=== PATIENT | female | born 1975 | race Hispanic/Latino ===

== ENCOUNTER 2017-08-08 09:52 | Outpatient (CLI) | payer OTHER ==
[2017-08-08 10:58] LABS: Hemoglobin 13.4 g/dL (12.0-16.0); Mean Corpuscular HGB CONC 33.4 g/dL (32.0-36.0); Mean Corpuscular Volume 93.1 fl (81.0-99.0); Mean Platelet Volume 8.4 fL (7.4-10.4); Platelet Count 225 thou/uL (130-400); RBC Distribution Width 12.2 % (11.5-14.5); Red Blood Cell (RBC) Count 4.33 mill/uL (4.20-5.40); White Blood Cell (WBC) Count 8.9 thou/uL (4.8-10.8)
[2017-08-08 11:12] LABS: INR-International Normal Ratio 1.1; PTT 30.9 SEC (22.9-36.1); Prothrombin Time 14.2 SEC (12.0-14.7)
[2017-08-08 11:19] LABS: ALT (SGPT) 18 U/L (8-55); AST (SGOT) 14 U/L (5-34); Albumin 3.7 g/dL (3.5-5.0); Alkaline Phosphatase 79 U/L (40-150); Anion Gap 11 mmol/L (10-20); BUN (Urea Nitrogen) 11 mg/dL (7.0-18.7); Bilirubin, Total 0.7 mg/dL (0.2-1.2); Calc. Creatinine Clearance 0 mL/min (70-130); Calcium 8.7 mg/dL (7.8-10.44); Carbon Dioxide 25 mmol/L (22-29); Chloride 104 mmol/L (98-107); Estimated GFR-MDRD 84; Globulin 2.7 g/dL (2.4-3.5); Glucose 124 mg/dL (70-105); Potassium 3.9 mmol/L (3.5-5.1); Protein, Total 6.4 g/dL (6.0-8.3); Sodium 136 mmol/L (136-145)
--- NOTE | 2017-08-13 08:44 | EKG ---
Test Reason : Blood Pressure : / mmHG Vent. Rate : 064 BPM Atrial Rate : 064 BPM P-R Int : 168 ms QRS Dur : 108 ms QT Int : 426 ms P-R-T Axes : 037 012 060 degrees QTc Int : 439 ms Normal sinus rhythm Low voltage QRS Cannot rule out Anterior infarct , age undetermined Abnormal ECG Confirmed by TULIO ADAMS, KAYLEN ([id number]) on 08/13/2017 8:44:02 AM Referred By: TULIO Confirmed By:KAYLEN ANTUNEZ MD
== END 2017-08-08 09:53 | disposition home or self-care (01) ==
LOC: LABBT 09:52
PROVIDERS: ATTEND Internal Medicine Cardiovascular Disease
DX: Z01.818 Encounter for other preprocedural examination (principal); R07.9 Chest pain, unspecified
CPT/HCPCS: 80053; 85027; 85610; 85730; 93005; 93010

== ENCOUNTER → 2017-08-09 | Day surgery (SDC) | payer OTHER ==
[2017-08-08 10:11] VITALS: BMI 66.4
[~2017-08-09] MED LIST: Diazepam 5 MG TAB ONE; Fentanyl 250 MCG/5 ML VIAL ONE; Heparin 10,000 UNITS/1 ML VIAL ONE; Iopamidol 370 76% 100 ML VIAL ONE; Lidocaine 1% (PF) 30 ML VIAL ONE; Midazolam HCl 2 mg/2 ml Vial ONE; Nitroglycerin 100MG/250ML BOT 250 ML ONE; Sodium Chloride 0.9% 1,000 ML IV SCH; Verapamil 5 MG/2 ML VIAL ONE
== END ==
LOC: CCL 05:37
PROVIDERS: ATTEND Internal Medicine Cardiovascular Disease
PROC: 4A023N7 Measurement of Cardiac Sampling and Pressure, Left Heart, Percutaneous Approach (ICD-10-PCS; principal; 2017-08-09)
PROC: B2111ZZ Fluoroscopy of Multiple Coronary Arteries using Low Osmolar Contrast (ICD-10-PCS; principal; 2017-08-09)
DX: R07.89 Other chest pain (principal); E03.9 Hypothyroidism, unspecified; E78.5 Hyperlipidemia, unspecified; E11.9 Type 2 diabetes mellitus without complications; M19.90 Unspecified osteoarthritis, unspecified site; I10 Essential (primary) hypertension; E66.9 Obesity, unspecified; Z68.44 Body mass index [BMI] 60.0-69.9, adult; Z79.84 Long term (current) use of oral hypoglycemic drugs; Z79.1 Long term (current) use of non-steroidal anti-inflammatories (NSAID); Z79.899 Other long term (current) drug therapy
CPT/HCPCS: 93458; 99152; C1769; J1644; J2001; J2250; J3010

== ENCOUNTER 2017-08-16 10:54 | Outpatient (CLI) | payer OTHER | END 2017-08-16 10:55 | disposition home or self-care (01) | LOC: DTY/OP 10:54 | PROVIDERS: ATTEND Surgery | DX: E11.9 Type 2 diabetes mellitus without complications (principal); G47.30 Sleep apnea, unspecified; I10 Essential (primary) hypertension | CPT/HCPCS: 97802 ==

== ENCOUNTER 2017-09-15 09:43 | Outpatient (CLI) | payer OTHER | END 2017-09-15 09:44 | disposition home or self-care (01) | LOC: DTY/OP 09:43 | PROVIDERS: ATTEND Surgery | DX: Z48.815 Encounter for surgical aftercare following surgery on the digestive system (principal); G47.30 Sleep apnea, unspecified; E11.9 Type 2 diabetes mellitus without complications; I10 Essential (primary) hypertension; Z98.84 Bariatric surgery status | CPT/HCPCS: 97802 ==

== ENCOUNTER 2017-10-17 08:46 | Outpatient (CLI) | payer OTHER | END 2017-10-17 08:47 | disposition home or self-care (01) | LOC: DTY/OP 08:46 | PROVIDERS: ATTEND Surgery | DX: G47.30 Sleep apnea, unspecified (principal); E11.9 Type 2 diabetes mellitus without complications; I10 Essential (primary) hypertension | CPT/HCPCS: 97802 ==

== ENCOUNTER 2017-11-15 09:59 | Outpatient (CLI) | payer OTHER | END 2017-11-15 10:00 | disposition home or self-care (01) | LOC: DTY/OP 09:59 | PROVIDERS: ATTEND Surgery | DX: G47.30 Sleep apnea, unspecified (principal); I10 Essential (primary) hypertension; E11.9 Type 2 diabetes mellitus without complications | CPT/HCPCS: 97802 ==

== ENCOUNTER 2017-11-16 08:18 | Outpatient (CLI) | payer OTHER ==
--- NOTE | 2017-11-20 12:48 | MMO ---
BILATERAL DIGITAL SCREENING MAMMOGRAMS: 11/20/17 HISTORY: 42-year-old female presents with digital screening mammography. COMPARISON: 11/29/16. This patient's mammogram is interpreted with the assistance of computer aided detection. Scattered areas of fibroglandular density are noted. There is an occasional typically benign calcific ation. There is several small stable parenchymal density asymmetries. IMPRESSION: BI-RADS 2: Benign Finding(s) Routine annual screening mammography (for women over age 40). POS: [facility]
== END 2017-11-16 08:19 | disposition home or self-care (01) ==
LOC: SCSMAMMO 08:18
PROVIDERS: ATTEND Obstetrics & Gynecology
DX: Z12.31 Encounter for screening mammogram for malignant neoplasm of breast (principal)
CPT/HCPCS: 77067

== ENCOUNTER 2017-12-14 13:08 | Outpatient (CLI) | payer OTHER | END 2017-12-14 13:09 | disposition home or self-care (01) | LOC: DTY/OP 13:08 | PROVIDERS: ATTEND Surgery | DX: E11.9 Type 2 diabetes mellitus without complications (principal); G47.33 Obstructive sleep apnea (adult) (pediatric); I10 Essential (primary) hypertension | CPT/HCPCS: 97802 ==

== ENCOUNTER 2018-01-10 09:25 | Outpatient (CLI) | payer OTHER | END 2018-01-10 09:26 | disposition home or self-care (01) | LOC: DTY/OP 09:25 | PROVIDERS: ATTEND Surgery | DX: Z00.00 Encounter for general adult medical examination without abnormal findings (principal) | CPT/HCPCS: 97802 ==

== ENCOUNTER 2018-01-31 09:13 | Outpatient (CLI) | payer OTHER ==
[2018-01-31 10:51] LABS: #Basophils 0.1 thou/uL (0.0-0.2); #Eosinphils 0.1 thou/uL (0.0-0.7); #Lymphocytes 2.2 thou/uL (1.20-3.40); #Monocytes 0.8 thou/uL (0.11-0.59); #Neutrophils 7.8 thou/uL (1.40-6.50); %Basophils 0.8 % (0.0-1.0); %Eosinophils 1.3 % (0.0-10.0); %Lymphocytes 19.7 % (21.0-51.0); %Monocytes 7.3 % (0.0-10.0); %Neutrophils 70.9 % (42.0-75.0); Hemoglobin 15.5 g/dL (12.0-16.0); Mean Corpuscular HGB CONC 33.4 g/dL (32.0-36.0); Mean Corpuscular Hemoglobin 30.7 pg (27.0-31.0); Mean Corpuscular Volume 91.7 fL (78.0-98.0); Mean Platelet Volume 9.8 fL (7.4-10.4); Platelet Count 267 thou/uL (130-400); RBC Distribution Width 12.1 % (11.5-14.5); Red Blood Cell (RBC) Count 5.05 mill/uL (4.20-5.40)
[2018-01-31 11:03] LABS: Hemoglobin A1c 5.1 % (4.0-6.0)
--- NOTE | 2018-01-31 11:11 | RAD ---
CHEST PA AND LATERAL: History: 42-year-old female presents for preoperative evaluation. Comparison: 10-17-15 FINDINGS: Heart size is normal. The lungs are clear. No pneumonia, edema, or pleural effusion or other acute pr ocess. IMPRESSION: No acute intrathoracic disease. POS: [facility]
[2018-01-31 11:15] LABS: ALT (SGPT) 11 U/L (8-55); AST (SGOT) 12 U/L (5-34); Alkaline Phosphatase 53 U/L (40-150); Anion Gap 11 mmol/L (10-20); BUN (Urea Nitrogen) 8 mg/dL (7.0-18.7); Bilirubin, Direct 0.4 mg/dL (0.1-0.3); Bilirubin, Total 1.1 mg/dL (0.2-1.2); Calc. Creatinine Clearance 0 mL/min (70-130); Calcium 9.5 mg/dL (7.8-10.44); Carbon Dioxide 25 mmol/L (22-29); Chloride 103 mmol/L (98-107); Estimated GFR-MDRD 87; Globulin 3.2 g/dL (2.4-3.5); Glucose 104 mg/dL (70-105); Potassium 3.6 mmol/L (3.5-5.1); Protein, Total 7.2 g/dL (6.0-8.3); Sodium 135 mmol/L (136-145)
== END 2018-01-31 09:14 | disposition home or self-care (01) ==
LOC: LABBT 09:13
PROVIDERS: ATTEND Surgery
DX: Z01.818 Encounter for other preprocedural examination (principal); E66.01 Morbid (severe) obesity due to excess calories
CPT/HCPCS: 71046; 80053; 80076; 83036; 85025; 93005; 93010

== ENCOUNTER 2018-01-31 09:30 | Inpatient (IN) | payer OTHER ==
[2018-01-31 09:52] VITALS: BMI 53.0
[2018-02-08] MEDS ORDERED: CEFAZOLIN/Water 2 GM/20 ML SYRINGE ONE (10:50)
[2018-02-08] MEDS ORDERED: Heparin 5,000 UNITS/ML VIAL ONE (10:50)
[2018-02-08] MEDS ORDERED: Ondansetron HCl/PF 4 MG/2 ML Vial ONE (11:21)
[2018-02-08] MEDS ORDERED: Lidocaine 1% PF 5 ML VIAL ONE (11:21)
[2018-02-08] MEDS ORDERED: PROPOFOL 200 MG/20 ML VIAL ONE (11:21)
[2018-02-08] MEDS ORDERED: Dexamethasone 20 MG/5 ML VIAL ONE (11:21)
[2018-02-08] MEDS ORDERED: Glycopyrrolate 0.2 MG/ML 5 ML SYRINGE ONE (11:21)
[2018-02-08] MEDS ORDERED: ePHEDrine/0.9% NaCl/PF SYRINGE 50 mg/10 ml ONE (11:21)
[2018-02-08] MEDS ORDERED: Ketorolac Tromethamine 30 MG/ML VIAL ONE (11:21)
[2018-02-08] MEDS ORDERED: Bupivacaine/Epinephrine 0.25% 30 ML VIAL ONE (13:33)
[2018-02-08] MEDS ORDERED: Fentanyl 100 MCG/2 ML VIAL ONE ×2 (13:35→15:43)
[2018-02-08] MEDS ORDERED: Midazolam HCl 2 mg/2 ml Vial ONE (13:35)
[2018-02-08] MEDS ORDERED: HYDROmorphone 0.5 MG/0.5 ML SYRINGE ONE (13:36)
[2018-02-08] MEDS ORDERED: Promethazine HCl 25 MG/ML VIAL SLOW IVP PRN (15:13)
[2018-02-08] MEDS ORDERED: Promethazine HCl 25 MG/ML VIAL IM PRN ×3 (15:13→17:31)
[2018-02-08] MEDS ORDERED: PACU-Morphine 4MG/ML VIAL SLOW IVP PRN (15:13)
[2018-02-08] MEDS ORDERED: HYDROmorphone 2 MG/ML VIAL SLOW IVP PRN (15:13)
[2018-02-08] MEDS ORDERED: Ondansetron HCl/PF 4 MG/2 ML Vial IVP PRN ×3 (15:13→17:31)
[2018-02-08] MEDS ORDERED: diphenhydrAMINE 50 MG/ML VIAL IM PRN (15:37)
[2018-02-08] MEDS ORDERED: diphenhydrAMINE 25 MG CAP PO PRN (15:37)
[2018-02-08] MEDS ORDERED: fentaNYL Citrate/PF 2,000 MCG in Sodium Chloride 0.9% 60 ML IV PRN (15:37)
[2018-02-08] MEDS ORDERED: diphenhydrAMINE 50 MG/ML VIAL IVP PRN ×2 (15:37→17:31)
[2018-02-08] MEDS ORDERED: Naloxone HCl 0.4 mg/ml Vial IV PRN (15:37)
[2018-02-08] MEDS ORDERED: Zolpidem Tartrate 5 MG TAB PO PRN (15:37)
[2018-02-08] MEDS ORDERED: Communication Order-Pharmacy FS SCH (15:45)
[2018-02-08] MEDS ORDERED: HumaLOG 300 UNITS/3 ML VIAL SC PRN (17:31)
[2018-02-08] MEDS ORDERED: Dextrose 50% Abboject 50 ML SYRINGE SLOW IVP PRN (17:31)
[2018-02-08] MEDS ORDERED: hydrALAZINE 20 MG/ML VIAL SLOW IVP PRN (17:31)
[2018-02-08] MEDS ORDERED: Dextrose 5% in Water 1,000 ML IV PRN (17:31)
[2018-02-08] MEDS ORDERED: Hydrocodone-Acetamin 15 ML UDCUP PO PRN (17:31)
--- NOTE | 2018-02-08 17:59 | OP ---
DATE OF PROCEDURE: 02/08/2018 PREOPERATIVE DIAGNOSES: 1. Morbid obesity with a body mass index of 53. 2. Hypertension. 3. Diabetes mellitus type 2. POSTOPERATIVE DIAGNOSES: 1. Morbid obesity with a body mass index of 53. 2. Hypertension. 3. Diabetes mellitus type 2. 4. Paraesophageal hiatal hernia. PROCEDURES: 1. Laparoscopic sleeve gastrectomy with Mico staple and reinforcements, 38 [place] bougie. 2. Laparoscopic hiatal hernia repair without fundoplication or mesh. 3. Esophagogastroduodenoscopy. SURGEON: Dr. Mitchell. ANESTHESIA: General. ESTIMATED BLOOD LOSS: 50 mL. COMPLICATIONS: None. FINDINGS: Hiatal hernia, normal postoperative EGD. PROCEDURE IN DETAIL: The patient was taken to the operating room and placed supine on the table. Af ter general anesthetic was obtained, the arms and legs were double strapped to bariatric table. OG t ube was used to decompress the stomach. The abdomen was prepped and draped in a sterile fashion. Le ft subcostal 5-mm Optiview trocar was placed in the usual fashion. High flow pneumoperitoneum was ob tained. Left and right abdominal 12-mm ports as well as a right subcostal 5 mm port were placed unde r direct visualization. A 5 mm incision made at the xiphoid and Kevin used to raise the liver of f the GE junction. Short gastrics were taken down from mid body of stomach to left urmila. Left urmila, posterior fundus, angle of His completely dissected as are all posterior adhesions. Short gastric t aken down to a distance of 5 cm proximal to the pylorus. A 38-[place] bougie was brought in and its t ip left in the antrum of the stomach. A hiatal hernia was found. Circumferential dissection of the esophagus was performed. The right and left urmila are dissected out posteriorly and anteriorly. The gastrohepatic ligament is opened to facilitate this. Multiple loads of an [place] stapling device wi th Mico staple line reinforcements used to form the sleeve. The first is fired at a distance of 6 cm proximal to the pylorus angled up towards the incisura. Multiple loads then fired up along the boug ie. Stomach was completely transected at the angle of His. The stomach was removed from the left ab dominal incision. This fascial defect was closed using GraNee needle 0 Vicryl tie. All port sites i nfiltrated using local anesthetic. Ethibond suture and the tie knot system used to close the crura p osteriorly. Care was taken to avoid making it too tight. The bougie was removed. EGD scope was pas sed into the esophagus to the level of the duodenum without obstruction or stricture, no air leakage or bleeding. It is used to decompress the stomach, it was pulled and removed. Molly retractor w as removed under direct visualization without bleeding. All port sites are removed under direct visu alization without bleeding. Pneumoperitoneum was let down. Vicryl used to close the fascial defect from left abdominal incisions. All incisions were irrigated and closed using 4-0 Monocryl and Dermab ond. The patient was en route to recovery in stable condition. All instrument counts, needle counts , and lap counts are correct.
[2018-02-08] MEDS: Acetaminophen 1,000 MG in Premix Bag 1 BAG IVPB SCH ×2 (18:50→23:02)
[2018-02-08] MEDS: 1/2 NS w/KCL 20 mEq 1,000 ML IV SCH (18:50)
[2018-02-08] MEDS: Enoxaparin Sodium 40 MG/0.4 ML SYRINGE SC SCH (20:57)
[2018-02-09] MEDS: 1/2 NS w/KCL 20 mEq 1,000 ML IV SCH ×3 (03:15→20:27)
[2018-02-09] MEDS: Acetaminophen 1,000 MG in Premix Bag 1 BAG IVPB SCH ×5 (05:17→23:53)
[2018-02-09 05:31] LABS: Anion Gap 10 mmol/L (10-20); BUN (Urea Nitrogen) 11 mg/dL (7.0-18.7); Calc. Creatinine Clearance 204 mL/min (70-130); Calcium 9.1 mg/dL (7.8-10.44); Carbon Dioxide 25 mmol/L (22-29); Chloride 101 mmol/L (98-107); Estimated GFR-MDRD 80; Glucose 151 mg/dL (70-105); Potassium 4.1 mmol/L (3.5-5.1); Sodium 132 mmol/L (136-145)
[2018-02-09 05:38] LABS: Band 7 % (5-11); Hemoglobin 15.1 g/dL (12.0-16.0); Lymphocytes 2 % (21-51); MDiff Complete? YES; Mean Corpuscular HGB CONC 33.3 g/dL (32.0-36.0); Mean Corpuscular Hemoglobin 30.5 pg (27.0-31.0); Mean Corpuscular Volume 91.5 fL (78.0-98.0); Mean Platelet Volume 9.8 fL (7.4-10.4); Monocytes 4 % (0-10); Neutrophil 87 % (42-75); PLT Morphology Comment Appears Adequate; Platelet Count 238 thou/uL (130-400); RBC Distribution Width 12.2 % (11.5-14.5); Red Blood Cell (RBC) Count 4.94 mill/uL (4.20-5.40); White Blood Cell (WBC) Count 21.8 thou/uL (4.8-10.8)
[2018-02-09] MEDS: Pantoprazole 40 MG VIAL IVP SCH (09:31)
--- NOTE | 2018-02-09 12:14 | PDOC.GSPN ---
Surgery Progress Note: Subj - Subjective Narrative: c/o liquids not going down very well. No significant nausea Surgery Progress Note: Obj - Vital signs Vital signs: Vital Signs - Most Recent Temp Pulse Resp BP Pulse Ox 98.2 F 82 13 149/97 H 97 02/09/18 11:52 02/09/18 11:52 02/09/18 11:52 02/09/18 11:52 02/09/18 11:52 - Physical Exam General: no distress Respiratory: clear to auscultation Abdomen: soft, non tender, nondistended Wound: healing well Surgery Progress Note: Results - Labs Result Diagrams: 02/09/18 05:08 02/09/18 05:08 Lab results: Laboratory Results - last 24 hr 02/08/18 02/09/18 02/09/18 23:48 05:08 05:08 WBC 21.8 H RBC 4.94 Hgb 15.1 Hct 45.2 MCV 91.5 MCH 30.5 MCHC 33.3 RDW 12.2 Plt Count 238 MPV 9.8 Neutrophils % (Manual) 87 H Band Neuts % (Manual) 7 Lymphocytes % (Manual) 2 L Monocytes % (Manual) 4 Plt Morphology Comment Appears Adequate Sodium 132 L Potassium 4.1 Chloride 101 Carbon Dioxide 25 Anion Gap 10 BUN 11 Creatinine 0.78 Estimated GFR (MDRD) 80 Glucose 151 H POC Glucose 167 H Calcium 9.1 02/09/18 02/09/18 06:01 10:41 WBC RBC Hgb Hct MCV MCH MCHC RDW Plt Count MPV Neutrophils % (Manual) Band Neuts % (Manual) Lymphocytes % (Manual) Monocytes % (Manual) Plt Morphology Comment Sodium Potassium Chloride Carbon Dioxide Anion Gap BUN Creatinine Estimated GFR (MDRD) Glucose POC Glucose 133 H 122 H Calcium Surgery Progress Note: A/P - Problem (1) Morbid obesity Current Visit: Yes Code(s): E66.01 - MORBID (SEVERE) OBESITY DUE TO EXCESS CALORIES Status: Acute - Plan Plan: Stay today -suspect she will be able to tolerate liquids better tomorrow. -swallow eval tomorrow if not improved
[2018-02-09] MEDS: Amlodipine 10 MG TAB PO SCH (18:13)
[2018-02-09] MEDS: Ketorolac Tromethamine 30 MG/ML VIAL IVP SCH ×2 (18:14→21:25)
[2018-02-09] MEDS: Enoxaparin Sodium 40 MG/0.4 ML SYRINGE SC SCH (21:25)
[2018-02-10] MEDS: 1/2 NS w/KCL 20 mEq 1,000 ML IV SCH ×3 (04:56→20:54)
[2018-02-10] MEDS: Acetaminophen 1,000 MG in Premix Bag 1 BAG IVPB SCH (05:17)
[2018-02-10] MEDS: Ketorolac Tromethamine 30 MG/ML VIAL IVP SCH (05:18)
[2018-02-10] MEDS: Pantoprazole 40 MG VIAL IVP SCH (09:39)
[2018-02-10] MEDS: Amlodipine 10 MG TAB PO SCH (09:39)
--- NOTE | 2018-02-10 09:39 | PRG ---
DATE OF SERVICE: 02/10/2018 SUBJECTIVE: The patient says she is doing better than yesterday, but she is still having a little tr ouble with fluids. She is working on it and she may be able to keep enough down to go home later tod ay. Her pain is well controlled. She is not having any reflux. PHYSICAL EXAMINATION: VITAL SIGNS: Her temperature is 98.2, pulse 66, blood pressure 117/73. GENERAL: She looks good. She is awake and alert. CHEST: Lungs are clear. ABDOMEN: Soft, nondistended. The incisions are healing well. ASSESSMENT: Soft tissue swelling after sleeve gastrectomy. PLAN: When she meets criteria for discharge, we will allow her to go home.
[2018-02-10] MEDS: Fentanyl 100 MCG/2 ML VIAL SLOW IVP PRN ×2 (16:23→19:55)
[2018-02-10] MEDS: Enoxaparin Sodium 40 MG/0.4 ML SYRINGE SC SCH (20:05)
[2018-02-10] MEDS: Acetaminophen 1,000 MG in Premix Bag 1 BAG IVPB PRN (21:00)
[2018-02-11] MEDS: Acetaminophen 1,000 MG in Premix Bag 1 BAG IVPB PRN ×2 (02:55→11:30)
[2018-02-11] MEDS: 1/2 NS w/KCL 20 mEq 1,000 ML IV SCH ×3 (05:19→15:57)
[2018-02-11] MEDS: Amlodipine 10 MG TAB PO SCH (08:40)
[2018-02-11] MEDS: Pantoprazole 40 MG VIAL IVP SCH (09:01)
--- NOTE | 2018-02-11 10:12 | PRG ---
DATE OF SERVICE: 02/11/2018 SUBJECTIVE: The patient states that she is still having difficulty taking oral fluids. She got abou t 2.5 ounces yesterday, has some minimal nausea, it is mainly just trying to get the fluid down. She is voiding well. Pain is okay. PHYSICAL EXAMINATION: VITAL SIGNS: Her temperature is 98.2, pulse 71, blood pressure 141/87. GENERAL APPEARANCE: She looks good. The incisions look. ASSESSMENT: Stable, but with postop swelling. PLAN: Continue IV fluids, continue to try and take p.o. when she is able to drink eight ounces of fl uid in 2 hours and we will let her go home.
[2018-02-11] MEDS: Enoxaparin Sodium 40 MG/0.4 ML SYRINGE SC SCH (20:23)
[2018-02-12] MEDS: 1/2 NS w/KCL 20 mEq 1,000 ML IV SCH ×3 (06:04→21:05)
[2018-02-12] MEDS: Amlodipine 10 MG TAB PO SCH (08:00)
[2018-02-12] MEDS: Pantoprazole 40 MG VIAL IVP SCH (08:01)
--- NOTE | 2018-02-12 10:08 | PDOC.GSPN ---
Surgery Progress Note: Subj - Subjective Narrative: c/o pain in low chest, upper midline abdomen with swallowing. No nausea or vomitting. Ambulating well Surgery Progress Note: Obj - Vital signs Vital signs: Vital Signs - Most Recent Temp Pulse Resp BP Pulse Ox 98.3 F 81 14 131/92 H 98 02/12/18 07:33 02/12/18 07:33 02/12/18 07:33 02/12/18 07:33 02/12/18 07:33 - Physical Exam General: no distress Cardiovascular: regular rate and rhythm Respiratory: clear to auscultation Abdomen: soft, non tender Wound: healing well (She has bruise at xiphoid) Surgery Progress Note: Results - Labs Result Diagrams: 02/09/18 05:08 02/09/18 05:08 Lab results: Laboratory Results - last 24 hr 02/11/18 02/12/18 23:42 06:02 POC Glucose 93 98 Surgery Progress Note: A/P - Problem (1) Morbid obesity Current Visit: Yes Code(s): E66.01 - MORBID (SEVERE) OBESITY DUE TO EXCESS CALORIES Status: Acute - Plan Plan: Persistent pain in low chest/upper abd with swallowing. She has bruise in the area, I suspect her pain is from the bruising from liver retractor. Swallow study this am to r/o hold up at hiatal hernia repair.
[2018-02-12] MEDS ORDERED: GASTROGRAFIN 30 ML BOT ONE (13:38)
--- NOTE | 2018-02-12 14:00 | RAD ---
ESOPHAGRAM: HISTORY: Nausea and vomiting after bariatric surgery. FINDINGS: Postoperative changes of the stomach consistent with recent gastric sleeve procedure. Contrast remai loree within the upper half of the stomach and the distal esophagus. No evidence of leak. Out to 28 minutes, no contrast passed into the distal stomach. IMPRESSION: High-grade/complete obstruction at the level of the gastric body. Findings were called to Erika, the patient's nurse, at 1116 hours. CODE CR POS: [facility]
--- NOTE | 2018-02-12 14:54 | PDOC.EVN ---
Event Note - Event Note Event Note: Swallow shows hold up of contrast in mid stomach. No hold up at GE junction or esophageal hiatus. No leak. Plan is observation. If not improved tomorrow will have GI do EGD+/- balloon dilation
[2018-02-12] MEDS: Fentanyl 100 MCG/2 ML VIAL SLOW IVP PRN (16:00)
[2018-02-12] MEDS: Enoxaparin Sodium 40 MG/0.4 ML SYRINGE SC SCH (21:04)
[2018-02-13] MEDS: Fentanyl 100 MCG/2 ML VIAL SLOW IVP PRN (00:02)
[2018-02-13] MEDS: 1/2 NS w/KCL 20 mEq 1,000 ML IV SCH (00:05)
[2018-02-13] MEDS: Amlodipine 10 MG TAB PO SCH (09:51)
[2018-02-13] MEDS: Pantoprazole 40 MG VIAL IVP SCH (09:52)
[2018-02-13 17:03] VITALS: BP 134/82; TEMP 98
== END 2018-02-13 16:35 | disposition home or self-care (01) | DRG 621 ==
LOC: SURG A 02-08 09:46
PROVIDERS: ADMIT Surgery; ATTEND Surgery
PROC: 0DB64Z3 Excision of Stomach, Percutaneous Endoscopic Approach, Vertical (ICD-10-PCS; principal; 2018-02-08)
PROC: 0BQT4ZZ Repair Diaphragm, Percutaneous Endoscopic Approach (ICD-10-PCS; 2018-02-08)
DX: E66.01 Morbid (severe) obesity due to excess calories (principal); Z68.43 Body mass index [BMI] 50.0-59.9, adult; I10 Essential (primary) hypertension; E11.9 Type 2 diabetes mellitus without complications; K44.9 Diaphragmatic hernia without obstruction or gangrene; Z79.82 Long term (current) use of aspirin; Z79.84 Long term (current) use of oral hypoglycemic drugs; Z83.3 Family history of diabetes mellitus; Z82.49 Family history of ischemic heart disease and other diseases of the circulatory system; Z80.0 Family history of malignant neoplasm of digestive organs; Z82.3 Family history of stroke
CPT/HCPCS: 36415; 36416; 74241; 80048; 85025; 88307; 88312; 90471; 90686; 94760; C9113; G0008; J0131; J1100; J1170; J1644; J1650; J1885; J2001; J2250; J2405; J2704; J3010; J7050

== ENCOUNTER 2018-02-20 16:26 | Day surgery (SDC) | payer OTHER ==
[2018-02-20] MEDS ORDERED: Multivit, Adult Inj 10 ML VIAL ONE (16:47)
[2018-02-20] MEDS ORDERED: Thiamine HCl 200 MG/2 ML VIAL ONE (16:47)
== END 2018-02-20 18:10 | disposition home or self-care (01) ==
LOC: SCSER/OP 16:26
PROVIDERS: ATTEND Emergency Medicine
DX: Z29.8 Encounter for other specified prophylactic measures (principal); Z79.899 Other long term (current) drug therapy
CPT/HCPCS: J3411

== ENCOUNTER 2018-12-13 11:27 | Outpatient (CLI) | payer OTHER ==
--- NOTE | 2018-12-13 14:42 | MMO ---
Bilateral MAMMO Bilat Screen [facility]. CLINICAL HISTORY: Patient is 43 years old and is seen for screening. The patient has no family history of breast cancer. The patient has no personal history of cancer. VIEWS: The views performed were: bilateral craniocaudal with tomosynthesis and bilateral mediolateral oblique with tomosynthesis. FILMS COMPARED: The present examination has been compared to prior imaging studies performed at [facility] on 11/29/2016, and at [facility] on 05/19/2015. This study has been interpreted with the assistance of computer-aided detection. MAMMOGRAM FINDINGS: There are scattered fibroglandular densities. There are no suspicious masses, suspicious calcifications, or new areas of architectural distortion. IMPRESSION: THERE IS NO MAMMOGRAPHIC EVIDENCE OF MALIGNANCY. A ROUTINE FOLLOW-UP MAMMOGRAM IN 1 YEAR IS RECOMMENDED. ACR BI-RADS Category 1 - Negative MAMMOGRAPHY NOTE: 1. A negative mammogram report should not delay a biopsy if a dominant of clinically suspicious mass is present. 2. Approximately 10% to 15% of breast cancers are not detected by mammography. 3. Adenosis and dense breasts may obscure an underlying neoplasm. Reported by: MEENA LUZ MD Electonically Signed: [id number]
--- NOTE | 2018-12-13 16:42 | BD ---
Exam: DEXA Bone Density 12/13/18 HISTORY: Screening for osteoporosis in a menopausal female. Lumbar Spine: BMD (g/cm2) T-SCORE L1 1.256 +2.4 L2 1.218 +1.7 L3 1.227 +1.3 L4 1.231 +1.5 L1-L4 1.233 +1.7 Within normal limits with no increased risk for fracture. Left Femoral Neck: 0.970 +1.1 Total Femur: 1.167 +1.8 Within normal limits with no increased risk for fracture. FRAX score not given because all T-Scores are at or above -1.0. POS: [facility]
== END 2018-12-13 11:28 | disposition home or self-care (01) ==
LOC: BICMAMMO 11:27
PROVIDERS: ATTEND Obstetrics & Gynecology
DX: Z12.31 Encounter for screening mammogram for malignant neoplasm of breast (principal); Z13.820 Encounter for screening for osteoporosis
CPT/HCPCS: 77063; 77067; 77080

== ENCOUNTER 2020-01-28 12:37 | Outpatient (CLI) | payer BC ==
--- NOTE | 2020-01-28 14:05 | MMO ---
Bilateral MAMMO Bilat Screen [facility]. CLINICAL HISTORY: Patient is 44 years old and is seen for screening. The patient has no family history of breast cancer. The patient has no personal history of cancer. VIEWS: The views performed were: bilateral craniocaudal with tomosynthesis and bilateral mediolateral oblique with tomosynthesis. FILMS COMPARED: The present examination has been compared to prior imaging studies performed at [facility] on 11/29/2016 and 12/13/2018, and at [facility] on 05/19/2015. This study has been interpreted with the assistance of computer-aided detection. MAMMOGRAM FINDINGS: There are scattered fibroglandular densities. There are no suspicious masses, suspicious calcifications, or new areas of architectural distortion. IMPRESSION: THERE IS NO MAMMOGRAPHIC EVIDENCE OF MALIGNANCY. A ROUTINE FOLLOW-UP MAMMOGRAM IN 1 YEAR IS RECOMMENDED. THE RESULTS OF THIS EXAM WERE SENT TO THE PATIENT. ACR BI-RADS Category 1 - Negative MAMMOGRAPHY NOTE: 1. A negative mammogram report should not delay a biopsy if a dominant of clinically suspicious mass is present. 2. Approximately 10% to 15% of breast cancers are not detected by mammography. 3. Adenosis and dense breasts may obscure an underlying neoplasm. Reported by: DELFINO CORTEZ MD Electonically Signed: [id number]
== END 2020-01-28 12:38 | disposition home or self-care (01) ==
LOC: BICMAMMO 12:37
PROVIDERS: ATTEND Physician Assistant
DX: Z12.31 Encounter for screening mammogram for malignant neoplasm of breast (principal)
CPT/HCPCS: 77063; 77067

== ENCOUNTER 2020-01-28 14:11 | Emergency (ER) | payer BC ==
[2020-01-28 15:07] LABS: #Basophils 0.1 thou/uL (0.0-0.2); #Eosinphils 0.1 thou/uL (0.0-0.7); #Lymphocytes 1.3 thou/uL (1.20-3.40); #Monocytes 0.7 thou/uL (0.11-0.59); #Neutrophils 5.9 thou/uL (1.40-6.50); %Basophils 1.2 % (0.0-1.0); %Eosinophils 1.3 % (0.0-10.0); %Lymphocytes 15.8 % (21.0-51.0); %Monocytes 8.1 % (0.0-10.0); %Neutrophils 73.7 % (42.0-75.0); Mean Corpuscular HGB CONC 33.7 g/dL (32.0-36.0); Mean Corpuscular Hemoglobin 32.6 pg (27.0-31.0); Mean Corpuscular Volume 96.7 fL (78.0-98.0); Mean Platelet Volume 9.1 fL (7.4-10.4); Platelet Count 241 thou/uL (130-400); RBC Distribution Width 11.7 % (11.5-14.5); Red Blood Cell (RBC) Count 4.31 mill/uL (4.20-5.40)
[2020-01-28 15:13] LABS: INR-International Normal Ratio 1.1; Prothrombin Time 14.9 sec (12.0-14.7)
[2020-01-28 15:14] LABS: PTT 31.3 sec (22.9-36.1)
--- NOTE | 2020-01-28 15:20 | ULT ---
EXAM: Right lower extremity venous Doppler US HISTORY: Right lower extremity edema and pain FINDINGS: Grayscale, color-flow, Doppler evaluation, spectral analysis of the right lower extremity venous stru ctures is performed with 2-D imaging. The right common femoral, superficial femoral, popliteal, posterior tibial, proximal greater saphenous and profunda femoral veins are imaged. There is normal luminal compressibility, flow, and augmentation the visualized deep venous structures of the right lower extremity. IMPRESSION: No evidence of a deep vein thrombosis in the right lower extremity.
[2020-01-28 15:28] LABS: ALT (SGPT) 9 U/L (8-55); AST (SGOT) 12 U/L (5-34); Albumin 3.5 g/dL (3.5-5.0); Alkaline Phosphatase 68 U/L (40-110); Anion Gap 9 mmol/L (10-20); BUN (Urea Nitrogen) 21 mg/dL (7.0-18.7); Bilirubin, Total 0.9 mg/dL (0.2-1.2); Calc. Creatinine Clearance 0 mL/min (70-130); Calcium 8.4 mg/dL (7.8-10.44); Carbon Dioxide 27 mmol/L (22-29); Chloride 105 mmol/L (98-107); Estimated GFR-MDRD 84; Globulin 2.7 g/dL (2.4-3.5); Glucose 89 mg/dL (70-105); Potassium 3.6 mmol/L (3.5-5.1); Protein, Total 6.2 g/dL (6.0-8.3); Sodium 137 mmol/L (136-145)
== END 2020-01-28 15:45 | disposition home or self-care (01) ==
LOC: ERS 14:11
DX: S80.11XA Contusion of right lower leg, initial encounter (principal); R60.0 Localized edema; E11.9 Type 2 diabetes mellitus without complications; E03.9 Hypothyroidism, unspecified; E78.2 Mixed hyperlipidemia; M19.90 Unspecified osteoarthritis, unspecified site; J45.909 Unspecified asthma, uncomplicated; G47.30 Sleep apnea, unspecified; Z79.899 Other long term (current) drug therapy
CPT/HCPCS: 36415; 80053; 85025; 85610; 85730

== ENCOUNTER 2021-11-11 14:11 | Outpatient (CLI) | payer MEDICAID | END 2021-11-11 14:12 | disposition home or self-care (01) | LOC: BICRAD 14:11 | PROVIDERS: ATTEND Nurse Practitioner Family | DX: S32.049S Unspecified fracture of fourth lumbar vertebra, sequela (principal); M79.671 Pain in right foot; M47.816 Spondylosis without myelopathy or radiculopathy, lumbar region; M41.9 Scoliosis, unspecified | CPT/HCPCS: 72100 ==

== ENCOUNTER 2021-12-08 08:08 | Outpatient (CLI) | payer MEDICAID | END 2021-12-08 08:09 | disposition home or self-care (01) | LOC: BICMAMMO 08:08 | PROVIDERS: ATTEND Physician Assistant | DX: Z12.31 Encounter for screening mammogram for malignant neoplasm of breast (principal) | CPT/HCPCS: 77067 ==

== ENCOUNTER 2022-01-13 09:16 | Outpatient (CLI) | payer OTHER | END 2022-01-13 09:17 | disposition home or self-care (01) | LOC: BICMAMMO 09:16 | PROVIDERS: ATTEND Physician Assistant | DX: Z13.820 Encounter for screening for osteoporosis (principal); Z78.0 Asymptomatic menopausal state | CPT/HCPCS: 77080 ==

== ENCOUNTER 2022-02-18 18:30 | Emergency (ER) | payer OTHER ==
[2022-02-18] MEDS ORDERED: Ketorolac Tromethamine 30 MG/ML VIAL ONE (19:33)
== END 2022-02-18 21:37 | disposition home or self-care (01) ==
LOC: ERS 18:30
DX: M54.41 Lumbago with sciatica, right side (principal); E78.5 Hyperlipidemia, unspecified; I10 Essential (primary) hypertension; E03.9 Hypothyroidism, unspecified; K21.9 Gastro-esophageal reflux disease without esophagitis; E11.9 Type 2 diabetes mellitus without complications; Z87.891 Personal history of nicotine dependence; Z79.899 Other long term (current) drug therapy
CPT/HCPCS: 72128; 72131; 96372; J1885

== ENCOUNTER 2022-04-07 14:59 | Outpatient (CLI) | payer OTHER | END 2022-04-07 15:00 | disposition home or self-care (01) | LOC: TBSIIMAG 14:59 | PROVIDERS: ATTEND Psychiatry & Neurology Clinical Neurophysiology | DX: M47.26 Other spondylosis with radiculopathy, lumbar region (principal); M48.061 Spinal stenosis, lumbar region without neurogenic claudication | CPT/HCPCS: 72148 ==

== ENCOUNTER 2022-06-17 14:00 | Outpatient (CLI) | payer MEDICAID, OTHER | END 2022-06-17 14:01 | disposition home or self-care (01) | LOC: BICMAMMO 14:00 | PROVIDERS: ATTEND Physician Assistant | DX: R92.8 Other abnormal and inconclusive findings on diagnostic imaging of breast (principal) | CPT/HCPCS: G0279 ==

== ENCOUNTER 2022-09-01 04:53 | Observation (INO) | payer OTHER ==
[2022-09-01] MEDS ORDERED: Ondansetron PF 4 MG/2 ML Vial IVP PRN (06:13)
[2022-09-01 06:35] VITALS: BMI 55.6
[2022-09-01 06:46] LABS: #Eosinphils 0.1 thou/uL (0.0-0.7); #Monocytes 0.6 thou/uL (0.11-0.59); #Neutrophils 10.3 thou/uL (1.40-6.50); %Basophils 0.3 % (0.0-1.0); %Eosinophils 0.4 % (0.0-10.0); %Lymphocytes 5.5 % (21.0-51.0); %Monocytes 5.4 % (0.0-10.0); %Neutrophils 87.9 % (42.0-75.0); Hemoglobin 12.3 g/dL (12.0-16.0); Mean Corpuscular HGB CONC 32.6 g/dL (32.0-36.0); Mean Corpuscular Hemoglobin 30.3 pg (27.0-31.0); Mean Corpuscular Volume 92.9 fl (78.0-98.0); Mean Platelet Volume 10.9 fL (7.4-10.4); Platelet Count 163 10x3/uL (130-400); RBC Distribution Width 12.8 % (11.5-14.5); Red Blood Cell (RBC) Count 4.06 mill/uL (4.20-5.40); White Blood Cell (WBC) Count 11.7 10x3/uL (4.8-10.8)
[2022-09-01 07:08] LABS: Anion Gap 10 mmol/L (10-20); BUN (Urea Nitrogen) 9 mg/dL (7.0-18.7); Calc. Creatinine Clearance 226 mL/min (70-130); Carbon Dioxide 23 mmol/L (22-29); Chloride 111 mmol/L (98-107); Estimated GFR 106; Glucose 115 mg/dL (70-105); Potassium 3.7 mmol/L (3.5-5.1); Sodium 140 mmol/L (136-145)
[2022-09-01] MEDS ORDERED: Ondansetron ODT 4 MG TAB PO PRN (07:57)
[2022-09-01] MEDS ORDERED: Ergocalciferol 1.25 MG(50,000 UNITS) CAP PO SCH ×2 (08:00→09:00)
[2022-09-01] MEDS ORDERED: Lisinopril 20 MG TAB PO SCH (09:00)
[2022-09-01] MEDS ORDERED: Lisinopril 10 MG TAB PO SCH (09:00)
[2022-09-01] MEDS: Sodium Chloride 0.9% 1,000 ML IV SCH ×2 (09:44→20:19)
[2022-09-01] MEDS: Acetaminophen 325 MG TAB PO PRN ×2 (09:45→15:31)
[2022-09-01] MEDS: Gabapentin 300 MG CAP PO SCH ×3 (09:45→20:21)
[2022-09-01] MEDS: Lisinopril 20 MG TAB PO SCH (09:47)
[2022-09-01] MEDS: Levothyroxine Sodium 50 MCG TAB PO SCH (09:47)
[2022-09-01] MEDS ORDERED: Dextrose 5% in Water 1,000 ML IV PRN (10:01)
[2022-09-01] MEDS ORDERED: HumaLOG 300 UNITS/3 ML VIAL SC PRN ×2 (10:01)
[2022-09-01] MEDS ORDERED: Dextrose 50% Abboject 50 ML SYRINGE SLOW IVP PRN (10:01)
[2022-09-01] MEDS: VANCOMYCIN 2 GRAM/500 ML BAG 2 GM in Premix Bag 1 BAG IVPB SCH ×2 (15:31→21:57)
[2022-09-01] MEDS: Cefepime 1 GM in Sodium Chloride 0.9% 100 ML IVPB SCH (18:07)
[2022-09-02] MEDS: Cefepime 1 GM in Sodium Chloride 0.9% 100 ML IVPB SCH (03:21)
[2022-09-02 05:22] LABS: #Eosinphils 0.1 thou/uL (0.0-0.7); #Monocytes 0.4 thou/uL (0.11-0.59); #Neutrophils 5.5 thou/uL (1.40-6.50); %Basophils 0.6 % (0.0-1.0); %Lymphocytes 11.7 % (21.0-51.0); %Monocytes 6.1 % (0.0-10.0); %Neutrophils 79.3 % (42.0-75.0); Mean Corpuscular Hemoglobin 30.5 pg (27.0-31.0); Mean Corpuscular Volume 92.4 fl (78.0-98.0); Mean Platelet Volume 11.1 fL (7.4-10.4); Platelet Count 138 10x3/uL (130-400); RBC Distribution Width 12.8 % (11.5-14.5); Red Blood Cell (RBC) Count 3.94 mill/uL (4.20-5.40); White Blood Cell (WBC) Count 6.9 10x3/uL (4.8-10.8)
[2022-09-02 05:34] LABS: Anion Gap 7 mmol/L (10-20); BUN (Urea Nitrogen) 11 mg/dL (7.0-18.7); Calc. Creatinine Clearance 243 mL/min (70-130); Calcium 8.1 mg/dL (7.8-10.44); Carbon Dioxide 24 mmol/L (22-29); Chloride 110 mmol/L (98-107); Estimated GFR 108; Glucose 88 mg/dL (70-105); Potassium 3.6 mmol/L (3.5-5.1); Sodium 137 mmol/L (136-145)
[2022-09-02 05:39] LABS: Vancomycin, Trough 30.2 ug/mL
[2022-09-02] MEDS: Gabapentin 300 MG CAP PO SCH ×3 (08:33→20:05)
[2022-09-02] MEDS: Lisinopril 20 MG TAB PO SCH (08:33)
[2022-09-02] MEDS: Levothyroxine Sodium 50 MCG TAB PO SCH (08:34)
[2022-09-02] MEDS: Acetaminophen 325 MG TAB PO PRN ×2 (08:40→17:42)
[2022-09-02] MEDS: Cefepime 2 GM in Sodium Chloride 0.9% 100 ML IVPB SCH (15:12)
[2022-09-02 17:28] LABS: Vancomycin, Random 12.4 ug/mL (See Comment)
[2022-09-02] MEDS: Sodium Chloride 0.9% 1,000 ML IV SCH ×2 (17:42→20:08)
[2022-09-02] MEDS ORDERED: VANCOMYCIN 2 GRAM/500 ML BAG 2 GM in Premix Bag 1 BAG IVPB SCH (18:00)
[2022-09-02] MEDS: Vancomycin 1.5 GRAM/300 ML BAG 1.5 GM in Premix Bag 1 BAG IVPB SCH (20:00)
[2022-09-02] MEDS ORDERED: GUAIFENESIN SF SOLN 200 MG/10 ML UDCUP PO PRN (21:24)
[2022-09-02] MEDS: Benzonatate 100 MG CAP PO PRN (21:40)
[2022-09-03] MEDS: Cefepime 2 GM in Sodium Chloride 0.9% 100 ML IVPB SCH ×2 (04:13→15:56)
[2022-09-03 06:32] LABS: #Eosinphils 0.1 thou/uL (0.0-0.7); #Monocytes 0.5 thou/uL (0.11-0.59); #Neutrophils 3.5 thou/uL (1.40-6.50); %Basophils 0.6 % (0.0-1.0); %Eosinophils 2.7 % (0.0-10.0); %Lymphocytes 19.7 % (21.0-51.0); %Monocytes 10.3 % (0.0-10.0); %Neutrophils 66.3 % (42.0-75.0); Hemoglobin 11.6 g/dL (12.0-16.0); Mean Corpuscular HGB CONC 32.9 g/dL (32.0-36.0); Mean Corpuscular Hemoglobin 30.1 pg (27.0-31.0); Mean Corpuscular Volume 91.5 fl (78.0-98.0); Platelet Count 144 10x3/uL (130-400); RBC Distribution Width 12.6 % (11.5-14.5); Red Blood Cell (RBC) Count 3.86 mill/uL (4.20-5.40); White Blood Cell (WBC) Count 5.2 10x3/uL (4.8-10.8)
[2022-09-03 07:15] LABS: Anion Gap 11 mmol/L (10-20); BUN (Urea Nitrogen) 6 mg/dL (7.0-18.7); Calc. Creatinine Clearance 255 mL/min (70-130); Calcium 8.2 mg/dL (7.8-10.44); Carbon Dioxide 24 mmol/L (22-29); Chloride 107 mmol/L (98-107); Estimated GFR 109; Glucose 85 mg/dL (70-105); Potassium 3.5 mmol/L (3.5-5.1); Sodium 138 mmol/L (136-145)
[2022-09-03] MEDS: Vancomycin 1.5 GRAM/300 ML BAG 1.5 GM in Premix Bag 1 BAG IVPB SCH (09:22)
[2022-09-03] MEDS: Gabapentin 300 MG CAP PO SCH ×2 (09:22→14:47)
[2022-09-03] MEDS: Lisinopril 20 MG TAB PO SCH (09:22)
[2022-09-03] MEDS: Levothyroxine Sodium 50 MCG TAB PO SCH (09:23)
[2022-09-03] MEDS: Acetaminophen 325 MG TAB PO PRN ×2 (09:23→14:47)
[2022-09-03] MEDS: Benzonatate 100 MG CAP PO PRN ×2 (09:26→16:28)
[2022-09-03] MEDS ORDERED: Bisacodyl 10 MG SUPP PR SCH (11:15)
[2022-09-03] MEDS: Sodium Chloride 0.9% 1,000 ML IV SCH (12:37)
[2022-09-03 16:19] VITALS: BP 119/80; TEMP 98.5
== END 2022-09-03 16:40 | disposition home or self-care (01) ==
LOC: T4-A 06:02
PROVIDERS: ADMIT Internal Medicine; ATTEND Internal Medicine
DX: G89.29 Other chronic pain (principal); M54.50 Low back pain, unspecified; R50.9 Fever, unspecified; J02.9 Acute pharyngitis, unspecified; I10 Essential (primary) hypertension; E03.9 Hypothyroidism, unspecified; K21.9 Gastro-esophageal reflux disease without esophagitis; E11.9 Type 2 diabetes mellitus without complications; M51.34 Other intervertebral disc degeneration, thoracic region; M51.36 Other intervertebral disc degeneration, lumbar region; M47.816 Spondylosis without myelopathy or radiculopathy, lumbar region; M48.061 Spinal stenosis, lumbar region without neurogenic claudication; M51.37 Other intervertebral disc degeneration, lumbosacral region; M47.817 Spondylosis without myelopathy or radiculopathy, lumbosacral region; E66.01 Morbid (severe) obesity due to excess calories; Z87.891 Personal history of nicotine dependence; Z68.43 Body mass index [BMI] 50.0-59.9, adult; Z79.890 Hormone replacement therapy; Z79.899 Other long term (current) drug therapy; Z98.84 Bariatric surgery status; Z98.890 Other specified postprocedural states
CPT/HCPCS: 36415; 36416; 72128; 72131; 80048; 80202; 84443; 85025; 87040; 87086; 96374; 96375; 96376; G0378; J0692; J3370; J3490; J7050

== ENCOUNTER 2022-11-05 22:36 | Emergency (ER) | payer OTHER ==
[2022-11-05] MEDS ORDERED: Ketorolac Tromethamine 30 MG/ML VIAL ONE (23:11)
[2022-11-05] MEDS ORDERED: Dexamethasone 4 mg/ml Vial ONE (23:11)
[2022-11-05] MEDS ORDERED: LORazepam 2 MG/ML SYR.(CARPUJECT) ONE (23:13)
== END 2022-11-05 23:37 | disposition home or self-care (01) ==
LOC: ERS 22:36
DX: M54.50 Low back pain, unspecified (principal); E78.5 Hyperlipidemia, unspecified; I10 Essential (primary) hypertension; E03.9 Hypothyroidism, unspecified; K21.9 Gastro-esophageal reflux disease without esophagitis; E11.9 Type 2 diabetes mellitus without complications; Z87.891 Personal history of nicotine dependence; Z79.899 Other long term (current) drug therapy
CPT/HCPCS: 96372; 99283; J1100; J1885; J2060

== ENCOUNTER 2023-03-09 18:13 | Emergency (ER) | payer OTHER | END 2023-03-09 19:40 | disposition home or self-care (01) | LOC: ERS 18:13 | DX: M79.672 Pain in left foot (principal); E78.5 Hyperlipidemia, unspecified; I10 Essential (primary) hypertension; K21.9 Gastro-esophageal reflux disease without esophagitis; E11.9 Type 2 diabetes mellitus without complications; Z87.891 Personal history of nicotine dependence; Z79.899 Other long term (current) drug therapy ==

== ENCOUNTER 2023-03-20 14:43 | Outpatient (CLI) | payer OTHER | END 2023-03-20 14:44 | disposition home or self-care (01) | LOC: BICMAMMO 14:43 | PROVIDERS: ATTEND Physician Assistant | DX: Z12.31 Encounter for screening mammogram for malignant neoplasm of breast (principal) | CPT/HCPCS: 77067 ==

== ENCOUNTER 2023-05-22 14:45 | Outpatient (CLI) | payer OTHER | END 2023-05-22 14:46 | disposition home or self-care (01) | LOC: SCSMRI 14:45 | PROVIDERS: ATTEND Neurological Surgery | DX: M51.16 Intervertebral disc disorders with radiculopathy, lumbar region (principal); M48.061 Spinal stenosis, lumbar region without neurogenic claudication; M47.26 Other spondylosis with radiculopathy, lumbar region; M47.817 Spondylosis without myelopathy or radiculopathy, lumbosacral region | CPT/HCPCS: 72148 ==

== ENCOUNTER 2023-12-12 10:39 | Outpatient (CLI) | payer OTHER | END 2023-12-12 10:40 | disposition home or self-care (01) | LOC: SCSMRI 10:39 | PROVIDERS: ATTEND Neurological Surgery | DX: M47.26 Other spondylosis with radiculopathy, lumbar region (principal); M47.817 Spondylosis without myelopathy or radiculopathy, lumbosacral region; M47.815 Spondylosis without myelopathy or radiculopathy, thoracolumbar region; Z98.890 Other specified postprocedural states | CPT/HCPCS: 72148 ==

== ENCOUNTER 2024-03-14 12:09 | Outpatient (CLI) | payer OTHER | END 2024-03-14 12:10 | disposition home or self-care (01) | LOC: RAD 12:09 | DX: M17.0 Bilateral primary osteoarthritis of knee (principal); M19.042 Primary osteoarthritis, left hand; M18.11 Unilateral primary osteoarthritis of first carpometacarpal joint, right hand; M89.9 Disorder of bone, unspecified ==

== ENCOUNTER 2024-05-17 14:55 | Outpatient (CLI) | payer OTHER | END 2024-05-17 14:56 | disposition home or self-care (01) | LOC: BICMAMMO 14:55 | PROVIDERS: ATTEND Physician Assistant | DX: Z12.31 Encounter for screening mammogram for malignant neoplasm of breast (principal) | CPT/HCPCS: 77067 ==